=== PATIENT | female | born 1995 | race Caucasian/White ===

== ENCOUNTER 2019-04-01 18:35 | Emergency (ER) | payer SELFPAY ==
[2018-07-19 09:47] VITALS: BMI 20.5
[2019-04-01 18:36] VITALS: BP 124/86; PULSE 99; RESP 18; TEMP 36.6; O2SAT 100; BMI 19.7
--- NOTE | 2019-04-01 18:43 | ED.RN ---
RN CALLED FOR EKG, NO OLD EKGS IN MUSE
--- NOTE | 2019-04-01 18:53 | EKG12_ITS ---
Test Reason : CP Blood Pressure : / mmHG Vent. Rate : 102 BPM Atrial Rate : 102 BPM P-R Int : 128 ms QRS Dur : 100 ms QT Int : 336 ms P-R-T Axes : 065 -03 -48 degrees QTc Int : 437 ms Sinus tachycardia Possible Left atrial enlargement Incomplete right bundle branch block Nonspecific T wave abnormality Abnormal ECG Confirmed by MAIKEL DSOUZA, FATOU ([id number]), managing editor JENNIFER ESPINOZA ([id number]) on 04/03/2019 8:59:54 AM Referred By: Confirmed By:FATOU KO MD
[2019-04-01 19:11] LABS: Absolute Lymphocyte Count 2.56 X10^3/uL (0.83-4.51); Absolute Neutrophil Count 8.8 X10^3/uL (2.0-7.7); Basophil# 0.03 X10^3/uL; Basophil% 0.2 % (0-1); Eosinophil# 0.12 X10^3/uL; Hemoglobin 14.2 g/dL (12.0-15.0); Lymphocyte # 2.56 X10^3/ul (4.0); Lymphocyte % 21.2 % (19-41); Mean Corpuscular Hgb 29.2 pg (27.0-32.0); Mean Corpuscular Volume 88.5 fL (81-99); Mean Platelet Vol. 9.9 fl (6.2-12.0); Monocyte# 0.56 X10^3/uL; Monocyte% 4.6 % (0-10); NRBC Flagged by Analyzer 0 % (0-5); Neutrophil # 8.75 X10^3/uL (2.7-7.7); Neutrophil % 72.6 % (47-70); Platelet Count 203 K/mm3 (150-450); RBC Distribution Width CV 11.9 % (11.6-14.6); RBC Distribution Width SD 37.9 fl (35.1-43.9); Red Blood Count 4.86 M/mm3 (4.2-5.4); White Blood Count 12.1 K/mm3 (4.4-11.0)
[2019-04-01 19:14] VITALS: BP 137/96; PULSE 88; RESP 19; O2SAT 98
--- NOTE | 2019-04-01 19:20 | RAD_ITS ---
STUDY: X-RAY CHEST REASON FOR EXAM: Female, 23 years old. Chest pain TECHNIQUE: Single AP portable view of the chest. COMPARISON: None. FINDINGS: The lungs are clear and expanded. There is no demonstrated pleural abnormality. Normal size heart. Normal mediastinum and ines. Normal visualized pulmonary arteries. Normal visualized aortic arch and descending thoracic aorta. Normal visualized thoracic spine. Normal visualized ribs, clavicles, and shoulders. There is no demonstrated abnormality of the visualized soft tissue structures of the upper abdomen. RAD/Chest 1 View (Portable) IMPRESSION: Normal x-ray examination of the chest. Electronically Signed: Duc Grajeda DO at 19:51 EDT Tel , Service support ,
[2019-04-01] MEDS: Aspirin 81 MG TAB.CHEW 324 MG PO (19:30)
[2019-04-01 19:37] LABS: Anion Gap 5 (5-15); BUN 14 mg/dL (7-18); BUN/Creat Ratio 18.2 RATIO (10-20); Calcium,Total 9.5 mg/dL (8.5-10.1); Chloride 104 mmol/L (98-107); Creatinine, Serum 0.77 mg/dL (0.55-1.02); EST Glomerular Filtration Rate 99 mL/min (>60); Est Glom Filt Rate - Afr Amer 119 mL/min (>60); Estimated Creatinine Clearance 93.57 ml/min; Glucose 123 mg/dL (74-106); Potassium 3.5 mmol/L (3.5-5.1); Sodium Level 137 mmol/L (136-145)
[2019-04-01 19:47] LABS: D-Dimer Quantitative (DVT/PE) 0.56 FEU/ug/m (0.27-0.49)
--- NOTE | 2019-04-01 19:48 | CT_ITS ---
STUDY: CTA CHEST REASON FOR EXAM: Female, 23 years old. Elevated d-dimer. RADIATION DOSAGE (If Supplied By Facility): CTDIvol = ( 2.62 ) mGy, DLP = ( 123.88 ) mGycm TECHNIQUE: The examination was performed with the intravenous administration of 100 IV Isovue 300. Post-processing of the angiographic images was performed, with multiplanar reformation and 3D reconstruction. Individualized dose optimization techniques were used for this CT. COMPARISON: None. FINDINGS: Normal enhancement of the main pulmonary artery and right and left pulmonary arteries. Normal enhancement of the bilateral peripheral pulmonary arteries. There is no demonstrated pulmonary embolism. Normal thoracic aorta and visualized great vessels. There is no demonstrated aortic dissection. Normal heart and pericardium. Normal mediastinum. Normal hilar regions. Normal visualized trachea and bronchi. The lungs are hyper expanded, with flattening of the hemidiaphragms. Normal pulmonary parenchyma. Normal pleura. Normal chest wall structures. Normal osseous structures. Normal visualized upper abdomen. CT/CTA Chest W/WO Contrast IMPRESSION: Normal CTA chest examination, without a demonstrated pulmonary embolism or arterial dissection. Electronically Signed: Quinton Andrews MD at 20:13 EDT , Service support ,
[2019-04-01 20:19] VITALS: BP 133/85; PULSE 88; RESP 16; O2SAT 97
--- NOTE | 2019-04-01 21:12 | ED.DCSUM_ITS ---
- ER Visit Summary Date of Service: 04/01/19 Chief Complaint: Chest pain History of Present Illness: The patient is a 23 F who presents with chest pain that has been intermittent over the past week. Patient states the pain lasts less than 5 to 10 minutes. Patient describes as a burning and tightness. Pat ient states the pain is over the substernal area. Patient states nothing makes it better or worse. Patient does admit to some palpitations. Patient denies any nausea or vomiting. Patient denies any diaphoresis. Patient denies any shortness of breath. Patient denies any cough or fevers. Patient denies any recent travel or recent surgery. Patient denies any cardiac risk factors. Physical Examination: Vital signs are stable. Patient is afebrile. Patient is in no acute distress. Oral mucosa is pink and moist. Neck is supple. Trachea is midline. There is no JVD noted. Heart was regular rate and rhythm. Lungs are clear and equal bilateral. Abdomen is soft. Bowel sounds are normal. There is no tenderness. There is no guarding noted. Skin is warm dry. Cranial nerves II through XII are intact. There are no focal motor or sensory deficits noted. The remaining physical exam is within normal limits. Test Results: EKG showed normal sinus rhythm with a rate of 102. There are no acute ST or T wave changes. There is an incomplete right bundle branch block. PA and lateral chest x-ray does not show any acute cardiopulmonary process. CBC showed a mild leukocytosis of 12.1. Basic metabolic profile was normal. Troponin was normal. D-dimer was obtained and was 0.56. CTA of the chest was obtained. There is no evidence of PE or aortic dissection. Emergency Department Course and Treatment: Patient is feeling better on reevaluation. Patient was advised of her findings. Patient was instructed to follow-up with her primary care physician in 5 to 7 days. Patient has a HEART score of 1. Patient was advised that this is low risk for acute cardiac event. Patient understood and was agreeable with the plan. All questions were answered. Disposition: Discharge home Impression: Chest pain This note was generated with [employer] software. It may contain incorrect words, spelling, and punctuation that were not noted in review of the chart prior to signing ED Disposition - Plan for ED Patient: Disposition: Home or Assisted Living Diagnosis: Chest pain of uncertain etiology Instructions: CHEST PAIN, Uncertain Cause Referrals: Chauncey Chu MD [Primary Care Provider] - 5-7 Days
[2019-04-01 21:18] VITALS: BP 118/79; PULSE 93; RESP 18; O2SAT 97
[2019-04-01 21:31] VITALS: BP 118/79; PULSE 87; RESP 16; O2SAT 96
== END 2019-04-01 21:31 | disposition home or self-care (01) ==
PROVIDERS: Emergency Provider Emergency Medicine
DX: R07.9 Chest pain, unspecified (principal); R00.2 Palpitations; I45.10 Unspecified right bundle-branch block; F32.9 Major depressive disorder, single episode, unspecified; Z79.899 Other long term (current) drug therapy
CPT/HCPCS: 71045; 71275; 80048; 84484; 85025; 85379; 93005; 99284; Q9967